=== PATIENT | male | born 1975 | race Caucasian/White ===

== ENCOUNTER 2024-12-18 09:20 | Emergency (ER) | payer MEDICARE, MEDICAID, SELFPAY ==
[2024-12-18] VITALS (7 sets, daily range): BP systolic 138–144; BP diastolic 67–93; PULSE 87–101; RESP 16–18; TEMP 36.6–36.8; O2SAT 98–100; BMI 27.8
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
--- OUTSIDE RECORDS SUMMARY | 2024-12-18 09:37 | XMS_ITS | Clinical Summary ---
Author Organization [facility] [place] [employer] BUSINESS OFFICE Address [facility] [employer] [address] [address] Care Team Providers Care Lens Grinder Name Role Phone Unavailable Primary Care Provider Unavailabl e Allergies No known active allergies Medications * This document contains information received from the source organization and may not represent a complete record from that organization. 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 Paranoid schizophrenia 01/10/2019 Delusions 2016 Paranoia 07/28/2015 Mood disorder 07/28/2015 Resolved Problems Problem Noted Date Diagnosed Date Resolved Date Medication monitoring encounter 12/09/2018 11/11/2023 Hallucinations 2016 11/11/2023 Social History Tobacco Use Types Packs/Day Years Used Date Smoking Tobacco: Never Assessed Sex and Gender Information Value Date Recorded Sex Assigned at Not on file Legal Sex Male 5:44 AM EDT Gender Identity Not on file Sexual Orientation Not on file Obstetrics History Plan of Treatment Health Maintenance Due Date Last Done Comments Annual Wellness Exam 1979 DTaP/TDaP/Td (1 - Tdap) 1995 Hepatitis B Vaccine (1 of 3 - 19+ 3-dose series) 1995 Cologuard 2021 Colon Cancer Screening 2021 Colonoscopy 2021 FIT 2021 Sigmoidoscopy 2021 Virtual Colonography 2021 COVID-19 Vaccine (1 - 2023-2 5 season) 2024 Influenza Vaccine (#1) 2025 Meningococcal B Vaccine Aged Out No l onger eligible based on patient's age to complete this topic Pneumococcal Vaccine 0-49 Aged Out No longer eligible based on patient's age to complete this topic Insurance MEDICARE PART A on file
[2024-12-18] MEDS: OXYCODONE 5MG IMMEDIATE RELEASE TABLET 5 MG PO (09:38)
[2024-12-18] MEDS: BACITRACIN ZINC OINT 30GM TUBE TP (11:06)
--- NOTE | 2024-12-18 11:09 | PC.NURSE ---
attempted to call [facility]. Spoke to employee about pt being ready for discharge and is ready to be picked up. Employee stated that they do not do transportation there and we are to call the transport van and if the van isn't able to pick pt up, then we are to call [facility] bus.
--- NOTE | 2024-12-18 11:10 | PC.NURSE ---
Called the [facility] to see about coming and transporting this pt back to [facility]
[2024-12-18 11:21] LABS: Hepatitis C Ab Qual. W/ RFX NEGATIVE (Negative)
== END 2024-12-18 11:23 | disposition home or self-care (01) ==
PROVIDERS: Emergency Provider Student in an Organized Health Care Education/Training Program
DX: S06.0XAA Concussion with loss of consciousness status unknown, initial encounter (principal); S02.2XXA Fracture of nasal bones, initial encounter for closed fracture; V87.7XXA Person injured in collision between other specified motor vehicles (traffic), initial encounter
CPT/HCPCS: 70450; 70486; 71045; 72125; 86803; 87389; 99285